=== PATIENT | male | born 1955 | race Caucasian/White ===

== ENCOUNTER 2020-12-24 13:10 | Outpatient (CLI) | payer MEDICARE, OTHER ==
[2020-12-24 14:36] LABS: Bilirubin Neg (Negative); Blood, Urine Negative (Negative); Clarity Clear (Clear); Glucose, Urine (Dipstick) Normal (Negative); Ketone, Urine Negative (Negative); Leukocyte Negative (Negative); Nitrite Negative (Negative); Protein, Urine (Dipstick) 15 mg/dl (Neg-Trace); Specific Gravity, Urine 1.015 (1.002-1.036); pH, Urine 6.5 (5.0-9.0)
[2020-12-24 14:55] LABS: INR-International Normal Ratio 0.9; Prothrombin Time 10.3 sec (9.5-12.1)
[2020-12-24 15:12] LABS: #Basophils 0.1 10x3/uL (0.0-0.2); #Eosinphils 0.2 10x3/uL (0.0-0.5); #Monocytes 0.8 10x3/uL (0.0-1.1); #Neutrophils 4.5 10x3/uL (1.5-8.4); %Basophils 0.7 % (0.0-2.0); %Eosinophils 2.8 % (0.0-6.0); %Lymphocytes 24.3 % (18.0-47.0); %Monocytes 10.3 % (0.0-10.0); %Neutrophils 61.3 % (40.0-75.0); Hemoglobin 15.5 g/dL (13.5-17.5); Mean Corpuscular HGB CONC 33.8 g/dL (32.0-36.0); Mean Corpuscular Hemoglobin 31.3 pg (27.0-33.0); Mean Corpuscular Volume 92.5 fl (81.2-95.1); Mean Platelet Volume 9.5 fl (7.4-10.4); Platelet Count 225 10x3/uL (150-450); RBC Distribution Width 12.1 % (11.5-14.5); Red Blood Cell (RBC) Count 4.95 10x6/uL (4.32-5.72); White Blood Cell (WBC) Count 7.3 10x3/uL (3.5-10.5)
[2020-12-24 15:22] LABS: Anion Gap 12 mmol/L (10-20); BUN (Urea Nitrogen) 15 mg/dL (8.4-25.7); Calc. Creatinine Clearance 0 mL/min (70-130); Calcium 8.8 mg/dL (7.8-10.44); Carbon Dioxide 27 mmol/L (23-31); Chloride 106 mmol/L (98-107); Glucose 83 mg/dL (80-115); Potassium 4.3 mmol/L (3.5-5.1); Sodium 141 mmol/L (136-145)
[2020-12-24 15:55] LABS: RBC/HPF 0-3 HPF (0-3); WBC/HPF 0-3 HPF (0-3)
[2020-12-24 15:57] LABS: Bacteria/HPF Rare-Few HPF (None Seen); Squamous Epithelial 0-3 HPF (0-3)
[2020-12-25 01:16] LABS: SARS-CoV-2 PCR by NAA Not Detected (NotDetected)
== END 2020-12-24 13:11 | disposition home or self-care (01) ==
LOC: LABBT 13:10
PROVIDERS: ATTEND Orthopaedic Surgery
DX: Z01.818 Encounter for other preprocedural examination (principal); M17.12 Unilateral primary osteoarthritis, left knee; Z20.822 Contact with and (suspected) exposure to COVID-19
CPT/HCPCS: 80048; 81001; 85025; 85610; 87081; U0003; U0005; 87635; 93005; 93010

== ENCOUNTER 2020-12-29 05:27 | Day surgery (SDC) | payer MEDICARE, OTHER ==
[2020-12-29] MEDS ORDERED: Fentanyl 100 MCG/2 ML VIAL ONE ×4 (06:03→10:07)
[2020-12-29] MEDS ORDERED: Tranexamic Acid 1,000 MG/10 ML VIAL ONE ×2 (06:07→09:32)
[2020-12-29] MEDS ORDERED: Sodium Chloride 0.9% 100 ML ONE (06:07)
[2020-12-29] MEDS ORDERED: Vancomycin 1.5 GRAM/300 ML BAG 1.5 GM in Premix Bag 1 BAG IVPB SCH ×2 (06:15→18:00)
[2020-12-29] MEDS ORDERED: HYDROmorphone 2 MG/ML VIAL SLOW IVP PRN (06:27)
[2020-12-29] MEDS ORDERED: Promethazine HCl 25 MG/ML VIAL SLOW IVP PRN (06:27)
[2020-12-29] MEDS ORDERED: Promethazine HCl 25 MG/ML VIAL IM PRN ×3 (06:27→07:45)
[2020-12-29] MEDS ORDERED: PACU-Morphine 4MG/ML VIAL SLOW IVP PRN (06:27)
[2020-12-29] MEDS ORDERED: Morphine Sulfate 2 MG/ML SYRINGE SLOW IVP PRN (06:27)
[2020-12-29] MEDS ORDERED: Meperidine HCl/PF 25 MG/ML VIAL SLOW IVP PRN (06:27)
[2020-12-29] MEDS ORDERED: Bupivacaine PF 0.5% 30 ML VIAL ONE (06:27)
[2020-12-29] MEDS ORDERED: Ondansetron HCl/PF 4 MG/2 ML Vial IVP PRN (06:27)
[2020-12-29] MEDS ORDERED: Midazolam HCl 2 mg/2 ml Vial ONE (06:38)
[2020-12-29] MEDS ORDERED: Lidocaine 1% (PF) 30 ML VIAL ONE ×2 (06:40→07:22)
[2020-12-29] MEDS ORDERED: Tranexamic Acid 1,000 MG in Sodium Chloride 0.9% 100 ML IVPB SCH (07:15)
[2020-12-29] MEDS ORDERED: Ondansetron PF 4 MG/2 ML Vial IVP PRN ×2 (07:16→07:45)
[2020-12-29] MEDS ORDERED: HYDROcodone/Acetaminophen 10/325 mg Tablet PO PRN ×4 (07:16→07:45)
[2020-12-29] MEDS ORDERED: Acetaminophen 325 MG TAB PO PRN (07:16)
[2020-12-29] MEDS ORDERED: traMADol HCl 50 MG TAB PO PRN ×3 (07:16→07:45)
[2020-12-29] MEDS ORDERED: Fentanyl 100 MCG/2 ML VIAL SLOW IVP PRN (07:16)
[2020-12-29] MEDS ORDERED: Zolpidem Tartrate 5 MG TAB PO PRN ×2 (07:16→07:45)
[2020-12-29] MEDS ORDERED: diphenhydrAMINE 25 MG CAP PO PRN (07:16)
[2020-12-29] MEDS ORDERED: Ropivacaine 2% HCl/PF (20 MG/10 ML VIAL) ONE (07:18)
[2020-12-29] MEDS ORDERED: Ondansetron PF 4 MG/2 ML Vial ONE (07:18)
[2020-12-29] MEDS ORDERED: PROPOFOL 200 MG/20 ML VIAL ONE (07:18)
[2020-12-29] MEDS ORDERED: Dexamethasone 20 MG/5 ML VIAL ONE (07:18)
[2020-12-29] MEDS ORDERED: Lidocaine 1% PF 5 ML VIAL ONE (07:18)
[2020-12-29] MEDS ORDERED: ePHEDrine Sulfate 50 MG/10 ML VIAL ONE (07:18)
[2020-12-29] MEDS ORDERED: Ropivacaine 0.5% HCl/PF (150 MG/30 ML VIAL) ONE (07:18)
[2020-12-29] MEDS ORDERED: methylPREDNISolone Acetate 40 mg/ml Vial ONE (07:22)
[2020-12-29] MEDS ORDERED: Fentanyl 100 MCG/2 ML VIAL IV PRN (07:39)
[2020-12-29] MEDS ORDERED: Ropivacaine HCl/PF 250 ML in Premix Bag 1 BAG NERVE BLCK SCH (07:45)
[2020-12-29] MEDS ORDERED: HYDROmorphone 2 MG/ML VIAL ONE (09:28)
[2020-12-29] MEDS ORDERED: Bupivacaine 0.5% 10 ML VIAL ONE (09:37)
[2020-12-29] MEDS ORDERED: Bupivacaine 0.25% HCL 30 ML VIAL ONE (09:37)
[2020-12-29] MEDS ORDERED: hydrALAZINE 20 MG/ML VIAL ONE (10:00)
[2020-12-29] MEDS ORDERED: Labetalol HCl 100 MG/20 ML VIAL ONE (10:19)
[2020-12-29 11:09] VITALS: BMI 30.4
[2020-12-29] MEDS: Multivitamin W/ Minerals 1 TAB PO SCH (11:28)
[2020-12-29] MEDS: Aspirin 81 mg Enteric Coated Tablet PO SCH ×2 (11:28→22:20)
[2020-12-29] MEDS: Senokot S 8.6-50 MG TAB PO SCH ×2 (11:28→22:21)
[2020-12-29] MEDS: Ferrous Gluconate 324 MG TAB PO SCH ×2 (11:28→22:22)
[2020-12-29] MEDS: Ketorolac Tromethamine 30 MG/ML VIAL IVP SCH ×2 (11:59→17:50)
[2020-12-29] MEDS: Sodium Chloride 0.9% 1,000 ML IV SCH ×2 (12:00→17:51)
[2020-12-29] MEDS ORDERED: Ketorolac Tromethamine 30 MG/ML VIAL IVP SCH (14:00)
[2020-12-29] MEDS: CEFAZOLIN 2 GM in Premix Bag 1 BAG IVPB SCH ×2 (14:16→22:22)
[2020-12-29] MEDS ORDERED: Vancomycin HCl 1.5 GM in Sodium Chloride 0.9% 250 ML 300 ML IVPB SCH (18:00)
[2020-12-29] MEDS: Losartan 25 MG TAB PO SCH (22:21)
[2020-12-30] MEDS: Ketorolac Tromethamine 30 MG/ML VIAL IVP SCH ×4 (00:43→17:35)
[2020-12-30] MEDS: Sodium Chloride 0.9% 1,000 ML IV SCH ×2 (04:49→17:31)
[2020-12-30 06:06] LABS: Hemoglobin 13.5 g/dL (14.0-18.0); Mean Corpuscular HGB CONC 33.6 g/dL (32.0-36.0); Mean Corpuscular Hemoglobin 32.1 pg (27.0-31.0); Mean Corpuscular Volume 95.5 fL (78.0-98.0); Mean Platelet Volume 6.8 fL (7.4-10.4); Platelet Count 238 thou/uL (130-400); RBC Distribution Width 11.7 % (11.5-14.5); Red Blood Cell (RBC) Count 4.19 mill/uL (4.70-6.10); White Blood Cell (WBC) Count 19.6 thou/uL (4.8-10.8)
[2020-12-30] MEDS: Aspirin 81 mg Enteric Coated Tablet PO SCH ×2 (08:15→21:27)
[2020-12-30] MEDS: Ferrous Gluconate 324 MG TAB PO SCH ×2 (08:15→21:28)
[2020-12-30] MEDS: Senokot S 8.6-50 MG TAB PO SCH ×2 (08:15→21:26)
[2020-12-30] MEDS: Multivitamin W/ Minerals 1 TAB PO SCH (08:16)
[2020-12-30] MEDS: Losartan 25 MG TAB PO SCH (21:27)
[2020-12-31] MEDS: Ketorolac Tromethamine 30 MG/ML VIAL IVP SCH ×2 (00:12→05:29)
[2020-12-31] MEDS: Sodium Chloride 0.9% 1,000 ML IV SCH ×3 (00:13→09:39)
[2020-12-31 06:18] LABS: Hemoglobin 13.3 g/dL (14.0-18.0); Mean Corpuscular HGB CONC 33.2 g/dL (32.0-36.0); Mean Corpuscular Hemoglobin 31.8 pg (27.0-31.0); Mean Corpuscular Volume 95.7 fL (78.0-98.0); Mean Platelet Volume 6.6 fL (7.4-10.4); Platelet Count 203 thou/uL (130-400); Red Blood Cell (RBC) Count 4.17 mill/uL (4.70-6.10); White Blood Cell (WBC) Count 13.2 thou/uL (4.8-10.8)
[2020-12-31] MEDS: Multivitamin W/ Minerals 1 TAB PO SCH (07:59)
[2020-12-31] MEDS: Ferrous Gluconate 324 MG TAB PO SCH (07:59)
[2020-12-31] MEDS: Aspirin 81 mg Enteric Coated Tablet PO SCH (07:59)
[2020-12-31] MEDS: Senokot S 8.6-50 MG TAB PO SCH (08:00)
[2020-12-31 12:08] VITALS: BP 155/97; TEMP 97.9
== END 2020-12-31 13:45 | disposition home or self-care (01) ==
LOC: SDC 05:27 → SURG B 07:18 → SDC 12-31 13:45
PROVIDERS: ATTEND Orthopaedic Surgery
PROC: 3E0U33Z Introduction of Anti-inflammatory into Joints, Percutaneous Approach (ICD-10-PCS; principal; 2020-12-29)
PROC: 0SRD0J9 Replacement of Left Knee Joint with Synthetic Substitute, Cemented, Open Approach (ICD-10-PCS; 2020-12-29)
PROC: 8E0YXBZ Computer Assisted Procedure of Lower Extremity (ICD-10-PCS; 2020-12-29)
DX: M17.0 Bilateral primary osteoarthritis of knee (principal); I10 Essential (primary) hypertension; M19.90 Unspecified osteoarthritis, unspecified site; Z79.899 Other long term (current) drug therapy
CPT/HCPCS: 20610; 20985; 27447; 85027; 97110 ×3; 97116 ×3; 97139 ×3; 97530 ×2; C1713; C1776; 36415; J0360; J0690; J1100; J1170; J1885; J2001; J2250; J2405; J2704; J2795; J2920; J3010; J3370; J3490; S0020

== ENCOUNTER 2023-09-04 15:33 | Emergency (ER) | payer MEDICARE, OTHER ==
[2023-09-04] MEDS ORDERED: Bupivacaine 0.25% 10 ML VIAL ONE (17:32)
[2023-09-04] MEDS ORDERED: Bacitracin 1 PK ONE (17:32)
== END 2023-09-04 19:56 | disposition home or self-care (01) ==
LOC: ERS 15:33
DX: S91.214A Laceration without foreign body of right lesser toe(s) with damage to nail, initial encounter (principal); I10 Essential (primary) hypertension; Z79.899 Other long term (current) drug therapy; W11.XXXA Fall on and from ladder, initial encounter; Y93.D9 Activity, other involving arts and handcrafts; Y92.009 Unspecified place in unspecified non-institutional (private) residence as the place of occurrence of the external cause
CPT/HCPCS: 12002; S0020